=== PATIENT | female | born 1975 | race Hispanic/Latino ===

== ENCOUNTER 2018-09-28 18:25 | Emergency (ER) | payer MEDICAID, SELFPAY ==
[2018-09-28 19:31] LABS: Anion Gap 12 mmol/L (10-20); BUN (Urea Nitrogen) 9 mg/dL (7.0-18.7); Calc. Creatinine Clearance 0 mL/min (70-130); Carbon Dioxide 24 mmol/L (22-29); Chloride 106 mmol/L (98-107); Estimated GFR-MDRD 90; Glucose 93 mg/dL (70-105); Potassium 3.6 mmol/L (3.5-5.1); Sodium 138 mmol/L (136-145)
[2018-09-28 19:45] LABS: #Basophils 0.1 thou/uL (0.0-0.2); #Eosinphils 0.2 thou/uL (0.0-0.7); #Lymphocytes 1.4 thou/uL (1.20-3.40); #Monocytes 0.4 thou/uL (0.11-0.59); #Neutrophils 2.6 thou/uL (1.40-6.50); %Basophils 1.1 % (0.0-1.0); %Eosinophils 3.7 % (0.0-10.0); %Lymphocytes 30.2 % (21.0-51.0); %Monocytes 9.3 % (0.0-10.0); %Neutrophils 55.7 % (42.0-75.0); Hemoglobin 11.2 g/dL (12.0-16.0); Mean Corpuscular HGB CONC 29.4 g/dL (32.0-36.0); Mean Corpuscular Hemoglobin 24.6 pg (27.0-31.0); Mean Corpuscular Volume 83.6 fL (78.0-98.0); Mean Platelet Volume 11.9 fL (7.4-10.4); Platelet Count 204 thou/uL (130-400); RBC Distribution Width 15.5 % (11.5-14.5); Red Blood Cell (RBC) Count 4.54 mill/uL (4.20-5.40); White Blood Cell (WBC) Count 4.6 thou/uL (4.8-10.8)
--- NOTE | 2018-09-28 20:53 | ULT ---
PELVIC ULTRASOUND: 09/28/18 HISTORY: Vaginal bleeding. Beta HCG is pending. Real time imaging of the pelvis was performed transvaginally. This shows a uterus measuring 10.3 cm i n length. There is an intrauterine cystic structure which appears to represent an early gestational s ac. It measures approximately 9 mm corresponding to 5 weeks, 5 days. There appears to be some subchor ionic blood adjacent to this. I do not definitely identify a pole. A 1.5 cm cyst is seen involving the right ovary. The left ovary shows a small 8 x 15 mm follicle. DOPPLER EVALUATION WITH SPECTRAL ANALYSIS: Normal flow is shown to both adnexa. Trace free fluid is noted. IMPRESSION: Findings appear to represent an early slightly irregularly shaped intrauterine gestational sac withou t any definite pole. There is what is probably a small area of subchorionic bleeding adjacent t o the gestational sac also noted. Followup ultrasound would be recommended. This could indicate a bli ghted ovum. It could just represent early at this point. POS: [facility]
== END 2018-09-28 20:45 | disposition home or self-care (01) ==
LOC: SCSER 18:25
DX: O20.0 Threatened abortion (principal); O09.521 Supervision of elderly multigravida, first trimester; F32.9 Major depressive disorder, single episode, unspecified; O99.341 Other mental disorders complicating pregnancy, first trimester; Z3A.09 9 weeks gestation of pregnancy
CPT/HCPCS: 76856; 80048; 84702; 85025; 86900; 86901

== ENCOUNTER 2018-09-29 14:50 | Emergency (ER) | payer OTHER, SELFPAY ==
[2018-09-29 15:36] LABS: #Basophils 0.1 thou/uL (0.0-0.2); #Eosinphils 0.1 thou/uL (0.0-0.7); #Lymphocytes 1.3 thou/uL (1.20-3.40); #Monocytes 0.3 thou/uL (0.11-0.59); #Neutrophils 2.2 thou/uL (1.40-6.50); %Basophils 1.4 % (0.0-1.0); %Eosinophils 3.3 % (0.0-10.0); %Lymphocytes 32.8 % (21.0-51.0); %Monocytes 7.7 % (0.0-10.0); %Neutrophils 54.9 % (42.0-75.0); Hemoglobin 10.7 g/dL (12.0-16.0); Mean Corpuscular HGB CONC 30.5 g/dL (32.0-36.0); Mean Corpuscular Hemoglobin 25.2 pg (27.0-31.0); Mean Corpuscular Volume 82.7 fL (78.0-98.0); Mean Platelet Volume 9.2 fL (7.4-10.4); Platelet Count 185 thou/uL (130-400); RBC Distribution Width 15.7 % (11.5-14.5); Red Blood Cell (RBC) Count 4.25 mill/uL (4.20-5.40)
== END 2018-09-29 16:20 | disposition home or self-care (01) ==
LOC: SCSER 14:50
DX: O09.511 Supervision of elderly primigravida, first trimester (principal); O20.0 Threatened abortion; O99.341 Other mental disorders complicating pregnancy, first trimester; F32.9 Major depressive disorder, single episode, unspecified; Z3A.09 9 weeks gestation of pregnancy
CPT/HCPCS: 36415; 84702; 85025; 99284